=== PATIENT | female | born 1965 | race Two or more races ===

== ENCOUNTER 2019-05-04 20:54 | Emergency (ER) | payer OTHER, SELFPAY ==
[~2019-05-04] VITALS: Ht 157.5 cm; Wt 84.0 kg
[2019-05-04 21:00] VITALS: BP 169/76
--- NOTE | 2019-05-04 21:20 | NUR ---
BREAK RN: PT REPORTS "TWISTING" HER KNEE AROUND 2PM TODAY WHILE WALKING. REPORTS INCREASED PAIN WITH MOVEMENT, NEURO INTACT. NO GROSS DEFORMITIY NOTED.
--- NOTE | 2019-05-04 21:33 | NUR ---
Pt returned from xray.
--- NOTE | 2019-05-04 22:01 | NUR ---
Provider at bedside.
--- NOTE | 2019-05-04 22:58 | NUR ---
At time of d/c, pt alert oriented and ambulatory with crutches. Education given on home care, follow-up, OTC meds and S/sx to return. Pt VU. Pt ambulated out of ER.
== END 2019-05-05 00:08 | disposition home or self-care (01) ==
LOC: ED 23:00
DX: S83.91XA Sprain of unspecified site of right knee, initial encounter (principal); X50.1XXA Overexertion from prolonged static or awkward postures, initial encounter; Y93.89 Activity, other specified; Y92.009 Unspecified place in unspecified non-institutional (private) residence as the place of occurrence of the external cause; Y99.8 Other external cause status
CPT/HCPCS: 29505; 99283